=== PATIENT | male | born 1995 | race Caucasian/White ===

== ENCOUNTER 2020-04-25 10:26 | Emergency (ER) | payer OTHER, BC ==
[~2020-04-25 10:26] MED LIST: NKHM PO; PERCOCET 325 MG1 TA2 PO; VICODIN 5/500 505 MG PO; VICODIN ES 7501 TAB PO
[2020-04-25] MEDS ORDERED: Motrin,Rufen800 MG PO (10:51)
== END 2020-04-25 10:31 | disposition home or self-care (01) ==
LOC: ED 10:26
DX: S20.219A Contusion of unspecified front wall of thorax, initial encounter (principal); Z88.0 Allergy status to penicillin; Z88.8 Allergy status to other drugs, medicaments and biological substances; Z79.899 Other long term (current) drug therapy; V89.2XXA Person injured in unspecified motor-vehicle accident, traffic, initial encounter; Y93.89 Activity, other specified; Y92.89 Other specified places as the place of occurrence of the external cause; Y99.8 Other external cause status

== ENCOUNTER → 2021-07-19 | Outpatient (CLI) | payer BC ==
[~2021-07-19] MED LIST changes: +Motrin,Rufen800 MG PO
== END ==
LOC: COVID19 15:53
PROVIDERS: ATTEND Internal Medicine
DX: U07.1 COVID-19 (principal)

== ENCOUNTER 2023-08-28 19:50 | Emergency (ER) | payer BC ==
[~2023-08-28] VITALS: Ht 175.2 cm; Wt 77.1 kg
[~2023-08-28 19:50] MED LIST changes: +CYCLOBENZAPRINE5 M3 PO; +MELOXICAM15 MG PO
[2023-08-28 21:37] LABS: BASO # 0.1 10*3/uL (0.0-0.1); BASO % 0.8 % (0.0-1.0); EOS # 0.3 10*3/uL (0.0-0.4); EOS % 2.8 % (1.0-4.0); HEMATOCRIT 48.2 % (42.0-52.0); LYMPH % 17.6 % (27.0-41.0); MEAN CELL VOLUME 83.1 fl (80.0-94.0); MEAN CORPUSCULAR HGB 27.8 pg (27.0-31.0); MEAN CORPUSCULAR HGB CONC 33.4 g/dl (33.0-37.0); MEAN PLATELET VOLUME 9.1 fl (9.6-12.3); MONO # 0.8 10*3/uL (0.1-1.0); NEUT # 7.9 10*3/uL (2.3-7.9); NEUT % 71.5 % (47.0-73.0); PLATELET COUNT AUTOMATED 298 10*3/uL (130-400); RED CELL DISTRI WIDTH 12.8 % (0-14.5); WHITE BLOOD COUNT 11.1 10*3/uL (4.8-10.8)
[2023-08-28 21:57] LABS: BUN 9 mg/dl (9-23); CHLORIDE 107 mmol/L (98-107); POTASSIUM 3.9 mmol/L (3.4-5.1)
[2023-08-28] MEDS ORDERED: BROMFED DM COU118 M2 PO (22:53)
[2023-08-28] MEDS ORDERED: ZITHROMAX250 MG PO (22:53)
[2023-08-28] MEDS ORDERED: AZITHROMYCIN 250 MG TAB PO ONE (22:55)
== END 2023-08-28 23:00 | disposition home or self-care (01) ==
LOC: ED 19:50
PROVIDERS: Nurse Practitioner Family
DX: J20.9 Acute bronchitis, unspecified (principal); Z20.822 Contact with and (suspected) exposure to COVID-19; Z88.0 Allergy status to penicillin; Z88.1 Allergy status to other antibiotic agents; Z98.890 Other specified postprocedural states; Z87.891 Personal history of nicotine dependence